=== PATIENT | female | born 1990 | race Caucasian/White ===

== ENCOUNTER 2024-01-12 09:51 | Outpatient (AMB) | payer OTHER, SELFPAY ==
--- NOTE | 2024-01-12 10:04 | A.OFFPC_ITS ---
Vital Signs 01/12/24 10:12 Height 5 ft 1 in Weight 199 lb BMI 37.6 BP 120/60 Blood Pressure Location Rt brachial Position Sitting Respiration 16 Pulse 92 Pulse Source Pulse Oximeter Temp 96.9 F Temp Source Tympanic Pulse Oximetry (%) 98 Oxygen Delivery Method Room Air Intake Visit Reasons: Est Care Intake Note: establish care Is last menstrual period known: Yes Last menstrual period: 01/16/24 Post menopausal: No Patient : No Allergies No Known Allergies Allergy (Verified 01/12/24 10:05) Medication List - Last Reconciled 01/12/24 by Vega Vargas MD albuterol sulfate 90 mcg/actuation inhalation budesonide-formoterol 160-4.5 mcg/actuation (Symbicort) inhalation budesonide-formoterol 80-4.5 mcg/actuation (Breyna) inhalation copper (ParaGard T 380A) intrauterine sodium fluoride-pot nitrate 1.1-5 % (PreviDent 5000 Enamel Protect) dental zafirlukast 20 mg PO BID Tobacco use date assessed: 01/12/24 Dental Screening Dental Screen Date: 01/12/24 Did you have a dental visit in the last 12 months?: Yes Did you have a dental problem in the last 6 months where you did not have access to dental care?: No Was dental information given to patient?: Patient has dentist HPI Est Care HPI Details New Patient? ?? Prior PCP:? [facility] Last office visit/CPE:? May for CPE Acute issue(s):? Est Care Asthma has fair control - worsened by seasonal allergies ?? PMHx:? Asthma. SurgHx:? Intestinal blockage as baby, FHx:? Mom: Hypothyroid. Dad: Unknown. mGM: Thyroid problems. mGF: DM, Blood Clots, skin CA. SocHx:? Nonsmoker, EtOH Socially 1-2 per month. MJ: daily. No other drugs HPI Comments History of Present Illness Details Documentation assistance for Vega Vargas MD, was provided by Vick Muñiz,? Bpo Specialist on 01/12/2024 at 10:39 AM EST. I, Dr. Vargas, have read, observed, and verified documentation. [facility] Social History (Updated 01/12/24 @ 10:07 by Ryne Fowler MA) Housing: House Patient Tobacco Use Status: Never used Tobacco e-Cigarette/Vaping Use: Never Used Second Hand Smoke Exposure: No Use of substances other than those prescribed or required for medical reasons: No Patient : No service: No Current occupational status: unemployed Current occupational exposures/hazards: No Cognitive needs: No Hearing needs: No Vision needs: Yes Female Reproductive History Menstrual Date of last menstrual period: 01/16/24 Questionnaire PHQ-9 Over the last 2 weeks, how often have you been bothered by any of the following problems? 1. Little interest or pleasure in doing things: not at all 2. Feeling down, depressed, or hopeless: not at all 3. Trouble falling or staying asleep, or sleeping too much: several days 4. Feeling tired or having little energy: not at all 5. Poor appetite or overeating: not at all 6. Feeling bad about yourself - or that you are a failure or have let yourself or your family down: not at all 7. Trouble concentrating on things, such as reading the newspaper or watching television: not at all 8. Moving or speaking so slowly that other people could have noticed. Or the opposite - being so fidgety or restless that you have been moving around a lot more than usual: not at all 9. Thoughts that you would be better off or of hurting yourself in some way: not at all Total score: 1 Depression Screening Interpretation: Negative Depression Screening Done: Yes 69622 - PHQ-9 Billing: Yes Source: Developed by Drs. Edvin Catherine, Melissa De La Cruz, Bimal Harris and colleagues, with an educational kizzy from [employer]. Thrive Questionnaire Date Thrive assessed: 01/12/24 I am a: Patient What is your living situation today?: I have a steady place to live Within the past 12 months, did the food you bought not last and you didn't have the money to get more?: Never true Within the past 12 months, did you worry whether your food would run out before you got money to buy more?: Never true Do you have trouble paying for medicines?: No Do you have trouble getting transportation to medical appointments?: No Do you have trouble paying your heating and electricity bill?: No Do you have trouble taking care of your child, family member or friend?: No Do you have trouble with day-to-day activities such as bathing, preparing meals, shopping, managing finances, etc.?: No Are you currently unemployed and looking for a job?: No Are you interested in more education?: No Currently or been in a relationship where the following occur: No concerns reported THRIVE Score: 0 AUDIT C Alcohol Use Questionnaire (AUDIT-C) 1. How often do you have a drink containing alcohol?: Monthly or less 2. How many drinks containing alcohol do you have on a typical day when you are drinking?: 1 or 2 3. How often do you have six or more drinks on one occasion?: Never Total Score: 1 MARYA-7 AMB Questionnaire MARYA-7 Date MARYA - 7 assessed: 01/12/24 Feeling nervous, anxious, or on edge: 0 = Not at all Not being able to stop or control worryin = Not at all Worrying too much about different things: 0 = Not at all Trouble relaxin = Not at all Being so restless that it is hard to sit still: 0 = Not at all Becoming easily annoyed or irritable: 0 = Not at all Feeling afraid as if something awful might happen: 0 = Not at all Total MARYA-7 score (0-4 normal; 5-9 mild; 10-14 moderate; 15-21 severe): 0 Source: Developed by Drs. Edvin Catherine, Melissa De La Cruz, Bimal Harris and colleagues, with an educational kizzy from [employer]. MARYA-7 Assessment Billing MARYA-7 Assessment Tool: MARYA-7 Assessment [id number] ACT Questionnaire In the past 4 weeks, how much of the time did your asthma keep you from getting as much done at work, school or at home?: A little of the time During the past 4 weeks, how often have you had shortness of breath?: Once a day During the past 4 weeks, how often did your asthma symptoms wake you up at night or earlier than usual in the morning?: Not at all During the past 4 weeks, how often have you had to use your rescue inhaler or nebulizer medication?: Once a week or less How would you rate your asthma control during the past 4 weeks?: Somewhat controlled ACT Interpretation: Positive Score: 18 Review of Systems Const Denies chills, Denies fatigue, Denies fever(s), Denies headache(s) and Denies weakness ENT Denies dizziness and Denies headache(s) Card Denies chest pain, Denies lightheadedness, Denies dyspnea and Denies other (Palpitations) Resp Denies cough, Denies dyspnea, Denies wheezing and Denies other ( shortness of breath) Musc Denies numbness and Denies tingling Neuro Denies dizziness, Denies headache(s), Denies numbness, Denies tingling, Denies paresthesias and Denies weakness Psych Denies anxiety and Denies depression Endo Denies fatigue Aller/Immun Denies wheezing Physical exam (Primary Care) Vital Signs: Last Vital Signs Temp 96.9 F 01/12/24 10:12 Pulse 92 01/12/24 10:12 Resp 16 01/12/24 10:12 BP 120/60 01/12/24 10:12 Pulse Ox 98 01/12/24 10:12 Oxygen Delivery Method Room Air 01/12/24 10:12 BMI result Body Mass Index 37.6 Tobacco/Smoking Status: Tobacco use Status Tobacco use date assessed 01/12/24 01/12/24 10:15 Patient Tobacco Use Status Never used Tobacco 01/12/24 10:15 e-Cigarette/Vaping Use Never Used 01/12/24 10:15 PHQ-9: PHQ-9 Score PHQ-9: Total score 1 01/12/24 10:30 Depression Screening Interpretation: Negative Thrive Assessment: Date of Thrive Assessment Date Thrive assessed 01/12/24 01/12/24 10:15 Currently or been in a relationship where the following occur: No concerns reported Const General: no acute distress and well developed Nutritional Appearance: well nourished Orientation/consciousness: patient oriented x3 [facility] Head: Yes normocephalic and Yes atraumatic Eyes General: appearance normal, both eyes and all related structures Pupils: Equal, round and reactive pupils present EOM: EOMs intact bilaterally Resp Effort & Inspection: normal respiratory effort Auscultation: clear to auscultation bilaterally Cardio Rate: regular rate Rhythm: regular rhythm Heart sounds: S1 normal heart sound present, S2 normal heart sound present, no gallops, no murmurs and no rubs Neuro General: patient oriented x3 and gait normal Cranial nerves: Yes Equal, round and reactive pupils present Psych Affect: normal affect Assessment and Plan Assessment & Plan (1) Asthma: Code(s): J45.909 - Unspecified asthma, uncomplicated Plan: 33-year-old?female?presents?as?new?patient?and?has?fairly?well?controlled?asthma Lungs?are?clear?today?and?she?is?breathing?easily. She?does?note?that?allergies?worsen?her?symptoms?however.??She?could?consider?us ing?a?nasal?steroid?along?with?her?current?medication?regimen?and?she?says?she?h as?Flonase?at?home?but?does?not?always?use?it. Patient?also?smokes?mJ?daily?and?I?advised?that?she?should?only?have?fresh?air?a nd?her?medications?in?her?lungs. Continue?current?medications?and?will?refill?these. (2) Seasonal allergies: Code(s): J30.2 - Other seasonal allergic rhinitis Plan: As?above (3) Laboratory exam ordered as part of routine general medical examination: Code(s): Z00.00 - Encounter for general adult medical examination without abnormal findings Plan: Check?labs Orders: Orders Comprehensive [place]. Panel Fast Today Z00.00 - Encounter for general adult medical examination without abnormal findings Lipid Panel Today Z00.00 - Encounter for general adult medical examination without abnormal findings UA and rflx microscopic Today Z00.00 - Encounter for general adult medical examination without abnormal findings HIV Ab/Ag Today Z11.3 - Encounter for screening for infections with a predominantly sexual mode of transmission Syphilis Screen Today Z11.3 - Encounter for screening for infections with a predominantly sexual mode of transmission Hepatitis B,C Profile Today Z11.3 - Encounter for screening for infections with a predominantly sexual mode of transmission Complete Blood Count Auto Diff Today Z00.00 - Encounter for general adult medical examination without abnormal findings Microalbumin, Random (w Creat) Today I10 - Essential (primary) hypertension TSH reflex Free T4 Today Z00.00 - Encounter for general adult medical examination without abnormal findings CT NG by PCR Today Z11.3 - Encounter for screening for infections with a predominantly sexual mode of transmission Coding Level of Care Code New Pt Level 3 (12972) Diagnoses Asthma J45.909 Seasonal allergies J30.2 Laboratory exam ordered as part of routine general medical examination Z00.00 Additional Codes MARYA-7 Assessment Billing - MARYA-7 Assessment Tool: MARYA-7 Assessment 28374 ([id number])
[2024-01-12 10:12] VITALS: BP 120/60; PULSE 92; RESP 16; TEMP 36.1; O2SAT 98; BMI 37.6
== END 2024-01-12 10:54 | disposition home or self-care (01) ==
PROVIDERS: Visit Provider Family Medicine
DX: J45.909 Unspecified asthma, uncomplicated (principal)
CPT/HCPCS: 99203

== ENCOUNTER 2024-08-02 09:28 | Outpatient (REF) | payer OTHER, SELFPAY ==
--- OUTSIDE RECORDS SUMMARY | 2024-08-02 09:57 | XMS_ITS | Encounter Summary ---
Author Organization [employer] Address [address] [place] [address] Care Team Providers Care Permanent Waver Name Role Phone Shannan Quiñones Primary Care Provider Clementina Osorio DO Primary Care Provider [phone] Encounter Details Date Type Department Care Team (Late st Contact Info) Description 05/21/[address] [facility] MEDICAL [address] [place] [address] Nneka Ruiz CMA Social History Tobacco Use Types Packs/Day Years Used Date Smoking Tobacco: Never Smokeless Tobacco: Never Alcohol Use Standard Drinks/Week Comments Not Currently 0 (1 standard drink = 0.6 oz pur e alcohol) Ocassionally Housing Stability Answer Date Recorded What is your housing situation today? I have nikki saunders 02/25/[address] you li ve. Do you have problems with any of the following? None of the above 02/25/2023 Food Insecurity Answer Date Recorded Within the past 12 months, y ou worried that your food would run out before you got money to buy more: Never True 02/25/2023 Within the past 12 months,th e food you bought just didn't last and you didn't have enough money to get more: Never True Transportation Answer Date Recorded In the past 12 months, has l ack of transportation kept you from medical appts, meetings, work or from getting things needed for daily living? No 02/25/2023 Utilities Answer Date Recorded In the past 12 months, has t he electric, gas, oil or water company threatened to shut off services in your home? No 02/25/2023 Depression Answer Date Recorded Patient Health Questionnaire-2 Score 0 08/27/2022 Education Answer Date Recorded What is the highest level of school you have completed or the highest degree you have received? Some college, no degree 08/27/2022 Comments Yes Sex and Gender Information Value Date Recorded Sex Assigned at Female 06/15/2022 12:14 PM EST Legal Sex Female 8:37 PM EDT Gender Identity Female 06/15/2022 12:14 PM EST Sexual Orientation Straight 06/15/2022 12 :14 PM EST Occupation Industry Job Start Date Job End Date [employer] Not on file Not on file Not on file documented as of this encounter Plan of Treatment Not on file documented as of this encounter Visit Diagnoses Not on filedocumented in this encounter Care Teams Permanent Waver Relationship Specialty Start Date End Date Shannan Quiñones PA PCP - General Family Medicine 05/19/23 09/14/23 Clementina Pederson DO [address] [place] [id number] PCP - General Family Medicine 09/15/23 documented as of this encounter
--- OUTSIDE RECORDS SUMMARY | 2024-08-02 09:57 | XMS_ITS | Clinical Summary ---
Author Organization [employer] Address [address] [facility] [address] [place] [address] Care Team Providers Care Automatic Lathe Operator Name Role Phone Clementina Pederson DO Primary Care Provider [phone] Allergies Active Allergy Reactions Criticality Noted Date Comments Cat Dander Other Low 04/15/2022 Other reaction(s): itchy eyes, runny nose Gramineae Pollens Other Low 04/15/2022 Other reaction(s): itchy eyes, runny nose Molds & Smuts Other Low 08/27/2022 Runny nose, itchy eyes Medications cetirizine (ZyrTEC) 10 MG tablet Take 10 mg by mouth in the morning. 2 Active Sodium Fluoride 5000 Enamel 1.1-5 % gel 2 Active copper (Paragard) IUD 3 Active budesonide-formot kyrie (Symbicort) 80-4.5 MCG/ACT inhalerIndication s:Mild persistent asthma without complication Inhale 2 puffs in the morning and at bedtime. Rinse mouth with water after use to reduce aftertaste and incidence of candidiasis. Do not swallow. 10.2 g 11 4 09/15/19 25 Active albuterol 108 (90 Base) MCG/ACT inhalerIndication s:Mild persistent asthma without complication Inhale 2 puffs every 4 (four) hours if needed for wheezing. 36 g 3 4 Active zafirlukast (Accolate) 20 MG tabletIndications :Mild persistent asthma without complication,Jones rgic rhinitis, unspecified seasonality, unspecified trigger Take 1 tablet (20 mg) by mouth 2 times daily. 180 tablet 3 4 Active Active Problems Problem Noted Date Diagnosed Date Routine general medical examination at [facility] 05/24/2023 Assessment & Plan (05/24/2023 10:21 AM EST): Mag was seen today to establish care with myself. She is doing well. She just had her 4th baby appx 6.5m ago. Doing well. Exclusively and just introduced foods, this is going ok for now. SAHM. Has 3 older children, all in school. Lives with . Diet is ok, mostly home cooked meals. Activity level is not where she would like it to be. No significant family hx; grandfather had skin cancer but also worked outside as a [employer] for years. Does not smoke/only occasional ETOH/no marijuana. Will do labwork at [facility] coming up in August. Gastroesophageal reflux disease 08/27/2022 Allergic rhinitis 04/15/2022 Assessment & Plan (05/24/2023 10:18 AM EST): Stable. Continues on Zyrtec as needed. 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 6, almost 7m. Doing well. Followed by Associate Publisher as well. No concerns today. Mild persistent asthma without complication 04/01 Assessment & Plan (05/24/2023 10:17 AM EST): Ongoing but stable. Asking for refills of Albuterol and Symbicort. Class 2 obesity 04/15/2022 Stress incontinence 04/15/2022 Resolved Problems Problem Noted Date Diagnosed Date Resolved Date Pyloric stenosis 09/15/2023 09/15/2023 Immunizations Name Administration Dates Next Due DTaP 01/18/1994, 4,05/18/1990,1989,01/07/1989 HPV 9-Valent 01/20/2007,09/19/2006 Hep B, Adolescent or Pediatric 09/01/2000,1999,02/11/2000 Hib (PRP-T) 02/03/1990 INFLUENZA INJECTABLE QUADRIV ALANT CCIIV4 MDCK Multi-dose vial 02/23/2019 Influenza, IIV3, injectable 03/23/2016,1 ,01/14/2014,2012 Influenza, Split (incl. nicole fied surface antigen) 02/19/2005,02/05/2004,02/22/2003,2001,01/30/2001,03/18/2000,02/13/1999 MMR 01/22/1999,02/01/1990 Polio, Unspecified 12/14/1993, 1,03/04/1989,1988 TD (adult), 2 Lf tetanus tox oid, preservative free, adsorbed 02/02/2011 Tdap 08/04/2022, 3,06/30/2014,2014 Family History Medical History Relation Name Comments healthy Daughter 1 healthy Daughter 2 healthy Daughter 3 No Known Problems Father Thyroid disease Mother Relation Name Status Comments Daughter 1 Alive Daughter 2 Alive Daughter 3 Alive Father Alive Mother Alive Social History Tobacco Use Types Packs/Day Years Used Date Smoking Tobacco: Never Passive Smoke Exposure: Never Smokeless Tobacco: Never Tobacco Cessation:Counseling Given: Not Answered Alcohol Use Standard Drinks/Week Comments Not Currently 0 (1 standard drink = 0.6 oz pur e alcohol) Ocassionally Alcohol Answer Date Recorded How often do you have a drink containing alcohol ? 0 09/15/2023 How many drinks containing a lcohol do you have on a typical day when you are drinking? 0 09/15/2023 How often do you have six or more drinks on one occasion? 0 09/15/2023 Housing Stability Answer Date Recorded What is your housing situation today? I have nikki saunders 09/15/[address] you li ve. Do you have problems with any of the following? None of the above 09/15/2023 Food Insecurity Answer Date Recorded Within the past 12 months, y ou worried that your food would run out before you got money to buy more: Never True 09/15/2023 Within the past 12 months,th e food you bought just didn't last and you didn't have enough money to get more: Never True Transportation Answer Date Recorded In the past 12 months, has l ack of transportation kept you from medical appts, meetings, work or from getting things needed for daily living? No 09/15/2023 Intimate Partner Violence Answer Date R ecorded Within the last year, have y ou been afraid of your partner or ex-partner? 2 09/15/2023 Within the last year, have y ou been humiliated or emotionally abused in other ways by your partner or ex-partner? 2 Within the last year, have y ou been kicked, hit, slapped, or otherwise physically hurt by your partner or ex-partner? 2 09/15/2023 Within the last year, have y ou been raped or forced to have any kind of sexual activity by your partner or ex-partner? 2 09/15/2023 Utilities Answer Date Recorded In the past 12 months, has t he [employer], gas, oil or water company threatened to shut off services in your home? No 09/15/2023 Depression Answer Date Recorded Patient Health Questionnaire-2 Score 0 09/15/2023 Education Answer Date Recorded What is the highest level of school you have completed or the highest degree you have received? Some college, no degree 08/27/2022 Comments Unknown Sex and Gender Information Value Date Recorded Sex Assigned at Female 06/15/2022 12:14 PM EST Legal Sex Female 8:37 PM EDT Gender Identity Female 06/15/2022 12:14 PM EST Sexual Orientation Straight 06/15/2022 12 :14 PM EST Occupation Industry Job Start Date Job End Date [employer] Not on file Not on file Not on file Last Filed Vital Signs Vital Sign Reading Time Taken Comments Blood Pressure 112/76 09/15/2023 11:13 AM EDT Pulse 90 09/15/2023 11:13 AM EDT Temperature 36.3 ??C (97.3 ??F) 09/15/2023 11:13 AM E DT Respiratory Rate - - Oxygen Saturation 95% 09/15/2023 11:13 AM EDT Inhaled Oxygen Concentration - - Weight 88.5 kg (195 lb) 09/15/2023 11:13 AM EDT Height 154.9 cm (5' 1 ) 09/15/2023 11:13 AM EDT Body Mass Index 36.84 09/15/2023 11:13 AM EDT Plan of Treatment Health Maintenance Due Date Last Done Comments HIV Screening 1988 Hepatitis C Screening 2006 HPV Vaccines (3 - 3-dose series) 04/14/2007 01/20/2007, 09/19/2006 Pneumococcal Vaccine: Pediatrics (0 to 5 Years) and At-Risk Patients (6 to 49) Years) (1 of 2 - PCV) 11/02/2007 HPV/Cotest 2018 COVID-19 Vaccine (1 - season) 2024 Influenza Vaccine (#1) 2024 9, 03/23/2016, 02/25/2015, Additional history exists Alcohol/Substance Use Screening 09/14/2024 09/15/2023 Depression Screening 09/14/2024 09/15/2023, 09/15/19 24 Family Planning (PISQ) 09/14/2024 09/15/2023 SDOH Screening 09/14/2024 09/15/2023 Tobacco Screening 09/14/2024 09/15/2023 Cervical Cancer Screening 01/18/2025 Pap Smear 01/18/2025 01/18/2022 DTaP/Tdap/Td Vaccines (9 - Td or Tdap) 08/04/2032 08/04/2022, 08/03/2022, 06/30/2014, Additional history exists Zoster Vaccines (1 of 2) 2038 RSV Patients and Patients Aged 60 years or older (1 - 1-dose 75+ series) 11/02/2063 HIB Vaccines Completed 02/03/1990 IPV Vaccines Completed 12/14/1993, 05/02, 03/04/1989, Additional history exists Hepatitis B Vaccines Completed 09/01/2000, 04/13/2000, 02/11/2000 Hepatitis A Vaccines Aged Out No long er eligible based on patient's age to complete this topic Meningococcal Vaccine Aged Out No rosalie karley eligible based on patient's age to complete this topic RSV under 20 months Aged Out No longe r eligible based on patient's age to complete this topic Rotavirus Vaccines Aged Out No longer eligible based on patient's age to complete this topic Procedures Procedure Name Priority Date/Time Associated Diagnosis Comments HM PAP/HPV Routine 01/18/2022 from Last 3 Months or Most Recently Relevant to Health Maintenance Results * Pap Smear (01/18/2022) Pap smear positive HPV Historical Provider MD HEALTH MAINTENANCE Final Result from Last 3 Months or Most Recently Relevant to Health Maintenance Insurance [employer] Care Teams Automatic Lathe Operator Relationship Specialty Start Date End Date Clementina Pederson DO [address] [facility] [place] [address] PCP - General Family Medicine 09/15/23
[2024-08-02 11:49] LABS: MANUAL DIFF FLAG NO
[2024-08-02 11:58] LABS: Basophils Absolute Auto 0.1 X10*3/uL (0.0-0.2); Basophils Percent Auto 0.7 % (0-2); Eosinophils Absolute Auto 0.3 X10*3/uL (0.0-0.4); Eosinophils Percent Auto 3.2 % (0-4); Hematocrit 42.5 % (37.0-47.0); Hemoglobin 13.9 g/dl (12.0-16.0); Imm Gran Abs Auto 0.04 X10*3/uL (0.00-0.03); Imm Gran Pct Auto 0.5 % (0.0-0.4); Lymphocytes Absolute Auto 2.2 X10*3/uL (1.2-4.9); Lymphocytes Percent Auto 26.1 % (20-40); Mean Corpuscular HGB Conc 32.7 g/dl (31.0-35.0); Mean Corpuscular Volume 88.5 fL (80.0-98.0); Mean Platelet Volume 11.6 fL (9.4-12.3); Monocytes Absolute Auto 0.5 X10*3/uL (0.1-1.2); Monocytes Percent Auto 6.4 % (2-11); Neutrophils Absolute Auto 5.4 x10*3/uL (2.0-8.3); Neutrophils Percent Auto 63.1 % (45-73); Platelet Count 242 X10*3/uL (160-400); Red Cell Distribution Width 13.4 % (11.0-16.0); White Blood Count 8.5 X10*3/uL (4.8-10.8)
[2024-08-02 12:32] LABS: Syphilis Screen Nonreactive (Nonreactive)
[2024-08-02 12:37] LABS: Alanine Aminotransferase 13 U/L (0-31); Albumin Level 3.8 g/dL (3.5-5.0); Alkaline Phosphatase 68 U/L (39-117); Anion Gap 9 (12-20); Aspartate Amino Transferase 21 U/L (5-31); Bilirubin Total 0.3 mg/dL (0.0-1.0); Blood Urea Nitrogen 7 mg/dL (9-16); Calcium 8.9 mg/dL (8.4-10.2); Carbon Dioxide 25 mmol/L (22-29); Chloride 109 mmol/L (96-108); Cholesterol 147 mg/dL (<200); Estimated Glomerular Filt Rate > 60; Glucose Fasting 93 mg/dL (60-99); HBS Num1 1.64 mIU/mL (0-7.99); HBc Num1 0.27 S/CO (0.00-0.79); HDL Cholesterol 35 mg/dL (>40); HIV AB/AG Nonreactive (Nonreactive); HIV Num 1 0.18 S/CO (0.00-0.99); Hepatitis B Core Antibody Nonreactive (Nonreactive); Hepatitis B Surface Antigen Negative (Negative); LDL Cholesterol Calculated 86 mg/dL (<100); Potassium 3.6 mmol/L (3.3-5.1); Sodium 139 mmol/L (135-145); TSH reflex Free T4 1.58 uIU/mL (0.32-4.0); Total Protein 6.7 g/dL (6.5-8.0); Triglycerides 134 mg/dL (<150); ~Hepatitis B Surface Antibody NONREACTIVE (Nonreactive); ~Hepatitis C Antibody Reactive (Nonreactive)
== END 2024-08-02 09:29 | disposition home or self-care (01) ==
LOC: HO.WFDLDS 09:28
PROVIDERS: Visit Provider Family Medicine
DX: Z00.00 Encounter for general adult medical examination without abnormal findings (principal); Z11.3 Encounter for screening for infections with a predominantly sexual mode of transmission
CPT/HCPCS: 36415; 80053; 80061; 84443; 85025; 86704; 86706; 86780; 86803; 87340; 87389

== ENCOUNTER 2024-08-17 08:38 | Outpatient (REF) | payer OTHER, SELFPAY ==
--- OUTSIDE RECORDS SUMMARY | 2024-08-17 09:01 | XMS_ITS | Clinical Summary ---
Author Organization [employer] Address [address] [facility] [address] [place] [address] Care Team Providers Care Linker Up Name Role Phone Clementina Pederson DO Primary Care Provider [phone] Allergies Active Allergy Reactions Criticality Noted Date [...] Diagnosed Date Routine general medical examination at [facility] 05/24/2023 Assessment & Plan (05/24/2023 [...] cancer but also worked outside as a [employer] for years. Does not smoke/only occasional ETOH/no marijuana. Will do labwork at [facility] coming up in August. Gastroesophageal reflux disease 08/27/2022 Allergic rhinitis 04/15/2022 Assessment & Plan (05/24/2023 10:18 AM EST): Stable. Continues on Zyrtec as needed. 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 6, almost 7m. Doing well. Followed by Straight Tooth Gear Generator Operator as well. No concerns today. Mild persistent [...] the past 12 months, has t he [employer], gas, oil or water company threatened to [...] Industry Job Start Date Job End Date [id number] Not on file Not on file Not [...] to Health Maintenance Insurance [employer] Care Teams Linker Up Relationship Specialty Start Date End Date Clementina Pederson DO [address] [facility] [place] [address] PCP - General Family Medicine 09/15/23
--- OUTSIDE RECORDS SUMMARY | 2024-08-17 09:01 | XMS_ITS | Encounter Summary ---
Author Organization [employer] Address [address] [place] [address] Care Team Providers Care Bowling Alley Attendant Name Role Phone Shannan Quiñones Primary Care Provider Clementina Osorio DO Primary Care Provider [phone] Encounter Details Date Type Department Care Team (Late st Contact Info) Description 05/21/2023 Orders Only [facility] MEDICAL [address] [place] [address] Nneka Ruiz CMA Social History Tobacco Use [...] Industry Job Start Date Job End Date [employer] Not on file Not on file Not on file documented as of this encounter Plan of Treatment Not on file documented as of this encounter Visit Diagnoses Not on filedocumented in this encounter Care Teams Bowling Alley Attendant Relationship Specialty Start Date End Date Shannan Quiñones PA PCP - General Family Medicine 05/19/23 09/14/23 Clementina Pederson DO [address] [place] [id number] PCP - General Family Medicine 09/15/23 documented as of this encounter
[2024-08-17 11:42] LABS: Anion Gap 9 (12-20); Blood Urea Nitrogen 9 mg/dL (9-16); Calcium 9.5 mg/dL (8.4-10.2); Carbon Dioxide 26 mmol/L (22-29); Chloride 107 mmol/L (96-108); Estimated Glomerular Filt Rate > 60; Glucose Random 98 mg/dL (60-115); Potassium 3.8 mmol/L (3.3-5.1); Sodium 138 mmol/L (135-145)
[2024-08-18 08:26] LABS: ~HepC Num1 4.13 S/CO (0.00-0.79); ~Hepatitis C Antibody Reactive (Nonreactive)
[2024-08-20 15:53] LABS: HCV RNA PCR Qn <1.18 NOT DETECTED Log IU/mL (NOT DETECTED); HCV RNA PCR Qn <15 NOT DETECTED IU/mL (NOT DETECTED)
== END 2024-08-17 08:39 | disposition home or self-care (01) ==
LOC: HO.WFDLDS 08:38
PROVIDERS: Visit Provider Family Medicine
DX: Z00.00 Encounter for general adult medical examination without abnormal findings (principal); R76.8 Other specified abnormal immunological findings in serum
CPT/HCPCS: 36415; 80048; 86803; 87522

== ENCOUNTER 2024-08-28 08:56 | Outpatient (AMB) | payer OTHER, SELFPAY ==
--- NOTE | 2024-08-28 09:01 | MHC.PC.OV ---
Vital Signs 08/28/24 09:05 Height 5 ft 1 in Weight 201 lb 4 oz BMI 38.0 BP 120/80 Blood Pressure Location Rt brachial Position Sitting Respiration 14 Pulse 96 Pulse Source Palpation Temp 97.7 F Temp Source Oral Pulse Oximetry (%) 98 Oxygen Delivery Method Room Air Intake Visit Reasons: extended exam with f/u labs & health maintenance Intake Note: patient is scheduled for extended exam Cost Controller Required: No Is last menstrual period known: Yes Last menstrual period: 08/16/24 Post menopausal: No Patient : No Allergies No Known Allergies Allergy (Verified 08/28/24 09:02) Tobacco use date assessed: 08/28/24 Dental Screening Dental Screen Date: 08/28/24 Did you have a dental visit in the last 12 months?: Yes Did you have a dental problem in the last 6 months where you did not have access to dental care?: No Was dental information given to patient?: No HPI extended exam with f/u labs & health maintenance HPI Details 33 y/o female presents for an extended exam with f/u labs and health maintenance. Labs drawn 08/02/24. Reviewed labs with pt. Triglycerides 134. TC 147. LDL 86. HDL low at 35. TSH 1.58. Exposure to hepatitis C. Complaints of seasonal allergies, asthma. She has her albuterol and has been trying Guerita for her allergies. HPI Comments History of Present Illness Details Documentation assistance for Vega Vargas MD, was provided by Vick Muñiz,? Financial Recruiter on 08/28/2024 at 9:46 AM EST. I, Dr. Vargas, have read, observed, and verified documentation. ?? [facility] Social History Housing: House Patient Tobacco Use Status: Never used Tobacco e-Cigarette/Vaping Use: Never Used Second Hand Smoke Exposure: No service: No Current occupational status: unemployed Current occupational exposures/hazards: No Cognitive needs: No Hearing needs: No Vision needs: Yes Female Reproductive History Menstrual Date of last menstrual period: 08/16/24 Questionnaire PHQ-9 Over the last 2 weeks, how often have you been bothered by any of the following problems? 1. Little interest or pleasure in doing things: not at all 2. Feeling down, depressed, or hopeless: not at all 3. Trouble falling or staying asleep, or sleeping too much: not at all 4. Feeling tired or having little energy: not at all 5. Poor appetite or overeating: not at all 6. Feeling bad about yourself - or that you are a failure or have let yourself or your family down: not at all 7. Trouble concentrating on things, such as reading the newspaper or watching television: not at all 8. Moving or speaking so slowly that other people could have noticed. Or the opposite - being so fidgety or restless that you have been moving around a lot more than usual: not at all 9. Thoughts that you would be better off or of hurting yourself in some way: not at all Total score: 0 Depression Screening Interpretation: Negative Depression Screening Done: Yes 26535 - PHQ-9 Billing: Yes Source: Developed by Drs. Edvin Catherine, Melissa De La Cruz, Bimal Harris and colleagues, with an educational kizzy from [employer]. Thrive Questionnaire Date Thrive assessed: 08/28/24 I am a: Patient What is your living situation today?: I have a steady place to live Within the past 12 months, did the food you bought not last and you didn't have the money to get more?: Never true Within the past 12 months, did you worry whether your food would run out before you got money to buy more?: Never true Do you have trouble paying for medicines?: No Do you have trouble getting transportation to medical appointments?: No Do you have trouble paying your heating and electricity bill?: No Do you have trouble taking care of your child, family member or friend?: No Do you have trouble with day-to-day activities such as bathing, preparing meals, shopping, managing finances, etc.?: No Are you currently unemployed and looking for a job?: No Are you interested in more education?: No Please select the resources that you would like help with: None Currently or been in a relationship where the following occur: No concerns reported THRIVE Score: 0 AUDIT C Alcohol Use Questionnaire (AUDIT-C) 1. How often do you have a drink containing alcohol?: 2-4 times a month 2. How many drinks containing alcohol do you have on a typical day when you are drinking?: 1 or 2 3. How often do you have six or more drinks on one occasion?: Never Total Score: 2 Score Reviewed/Action Taken: Yes MARYA-7 AMB Questionnaire MARYA-7 Date MARYA - 7 assessed: 08/28/24 Feeling nervous, anxious, or on edge: 0 = Not at all Not being able to stop or control worryin = Not at all Worrying too much about different things: 0 = Not at all Trouble relaxin = Not at all Being so restless that it is hard to sit still: 0 = Not at all Becoming easily annoyed or irritable: 0 = Not at all Feeling afraid as if something awful might happen: 0 = Not at all Total MARYA-7 score (0-4 normal; 5-9 mild; 10-14 moderate; 15-21 severe): 0 Source: Developed by Drs. Edvin Catherine, Melissa De La Cruz, Bimal Harris and colleagues, with an educational kizzy from [employer]. MARYA-7 Assessment Billing MARYA-7 Assessment Tool: MARYA-7 Assessment 46842 Review of Systems Const Denies chills, Denies fatigue, Denies fever(s), Denies headache(s) and Denies weakness Eyes Denies change in vision ENT Denies dizziness, Denies headache(s), Denies hearing loss, Denies nasal congestion, Denies sinus pain, Denies sinus pressure and Denies sore throat Card Denies chest pain, Denies lightheadedness, Denies dyspnea and Denies other (palpitations) Resp Denies cough, Denies dyspnea and Denies wheezing GI Denies abdominal pain, Denies melena, Denies hematochezia, Denies change in bowel habits, Denies dyspepsia and Denies nausea Denies hematuria and Denies dysuria Musc Denies abnormal gait, Denies myalgias, Denies arthralgias, Denies numbness and Denies tingling Skin/Breast Denies rash, Denies unusual bruising and Denies wounds Neuro Denies abnormal gait, Denies dizziness, Denies headache(s), Denies memory loss, Denies numbness, Denies Sensory deficit (Neuro), Denies tingling and Denies weakness Psych Denies anxiety, Denies depression and Denies memory loss Endo Denies cold intolerance, Denies fatigue, Denies heat intolerance, Denies polydipsia and Denies polyuria Pop/Lymph Denies easy bleeding and Denies easy bruising Aller/Immun Denies wheezing Physical exam (Primary Care) Vital Signs: Last Vital Signs Temp 97.7 F 08/28/24 09:05 Pulse 96 08/28/24 09:05 Resp 14 08/28/24 09:05 BP 120/80 08/28/24 09:05 Pulse Ox 98 08/28/24 09:05 Oxygen Delivery Method Room Air 08/28/24 09:05 BMI result Body Mass Index 38.0 Tobacco/Smoking Status: Tobacco use Status Tobacco use date assessed 08/28/24 08/28/24 09:05 Patient Tobacco Use Status Never used Tobacco 08/28/24 09:05 e-Cigarette/Vaping Use Never Used 08/28/24 09:05 PHQ-9: PHQ-9 Score PHQ-9: Total score 0 08/28/24 09:41 Depression Screening Interpretation: Negative Thrive Assessment: Date of Thrive Assessment Date Thrive assessed 08/28/24 08/28/24 09:05 Currently or been in a relationship where the following occur: No concerns reported Const General: no acute distress, well developed, alert and awake Nutritional Appearance: well nourished Orientation/consciousness: patient oriented x3 HENMT Head: Yes normocephalic and Yes atraumatic Ears: hearing grossly normal bilaterally and TM's normal bilaterally General nose exam: Normal external nose present and Normal nares present Mouth: Normal oral and palatal mucosa present and moist mucous membranes Teeth and gingiva: dentition normal Throat: Yes posterior oropharynx normal Eyes General: appearance normal, both eyes and all related structures Pupils: Equal, round and reactive pupils present and Pupil accommodation reflex normal EOM: EOMs intact bilaterally Neck Neck: Yes normal visual inspection, Yes no lymphadenopathy and Yes trachea midline Thyroid: Thyroid normal Carotids: no bruits Lymphatic: no lymphadenopathy noted Chest Chest palpation & inspection: normal inspection of the chest Resp Effort & Inspection: normal respiratory effort Auscultation: clear to auscultation bilaterally Cardio Rate: regular rate Rhythm: regular rhythm Heart sounds: S1 normal heart sound present, S2 normal heart sound present, no gallops, no murmurs and no rubs Bruits: no abdominal aortic bruits and no carotid bruits GI Palpation (GI): No Abdominal aortic bruit present, Soft to palpation, nontender, No hepatosplenomegaly present and No Rebound tenderness present Auscultation: normal bowel sounds General: Yes no CVA tenderness Back/Spine/Pelvis Back: no CVA tenderness Cervical Spine: cervical ROM normal and No Cervical spine tenderness Thoracic/Lumbar Spine: thoraco-lumbar ROM normal, No pain with thoraco-lumbar ROM, No thoracic spinal tenderness and No lumbar spinal tenderness Skin Lesions: no lesions Rashes: no rashes Trauma: no lacerations or abrasions Wounds: no wounds Nails: normal Neuro General: patient oriented x3 Cranial nerves: Yes Equal, round and reactive pupils present Cognition (Neuro): normal cognition Gait exam (Neuro): Normal gait present Motor exam (neuro): 5/5 motor strength present throughout Sensory Exam: No Sensory deficit (Neuro) Deep tendon reflexes (DTR's): Right patellar reflex intensity grade: 2+ and Left patellar reflex intensity grade: 2+ Extrem General: Yes normal to inspection and No edema Psych Appearance: grossly normal Affect: normal affect Attitude: cooperative Thought process: Normal thought process present Coding Level of Care Code Est Pt Level 4 (51126) Diagnoses Seasonal allergies J30.2 Exposure to hepatitis C Z20.5 Asthma J45.909 Screening for cervical cancer Z12.4 Adult general medical exam Z00.00 Additional Codes MARYA-7 Assessment Billing - MARYA-7 Assessment Tool: MARYA-7 Assessment 19228 ([id number]) PHQ-9 - 92419 - PHQ-9 Billing: Yes ([id number]) Assessment & Plan Assessment & Plan (1) Seasonal allergies: Code(s): J30.2 - Other seasonal allergic rhinitis Category: Medical Plan: Continue?using?Guerita?as?recommended (2) Exposure to hepatitis C: Code(s): Z20.5 - Contact with and (suspected) exposure to viral hepatitis Category: Medical Plan: Hep?C?antibody?positive?but?hepatitis?C?virus?undetectable Appears?to?have?had?exposure?and?has?cleared?this. Will?recheck?with?next?blood?draw (3) Asthma: Code(s): J45.909 - Unspecified asthma, uncomplicated Category: Medical Plan: Lungs?are?clear?to?auscultation?bilaterally Patient?is?breathing?easily Continue?inhaled?medications?as?prescribed Use?Guerita Call?or?return?to?office?if?well?controlled. (4) Screening for cervical cancer: Code(s): Z12.4 - Encounter for screening for malignant neoplasm of cervix Category: Medical Plan: Patient?notes?some?abnormal?Pap?smears Follow-up?with?auricular detoxification specialist?as?recommended (5) Adult general medical exam: Code(s): Z00.00 - Encounter for general adult medical examination without abnormal findings Category: Medical Plan: 33-year-old?female?presents?for?extended?exam Encouraged?healthy?diet?with?active?lifestyle?and?plenty?of?exercise Orders: Orders Hepatitis C Viral Load 4 Months Z20.5 - Contact with and (suspected) exposure to viral hepatitis Hepatitis B,C Profile 4 Months Z11.3 - Encounter for screening for infections with a predominantly sexual mode of transmission, Z20.5 - Contact with and (suspected) exposure to viral hepatitis Comprehensive Met. Panel Today Z20.5 - Contact with and (suspected) exposure to viral hepatitis
[2024-08-28 09:05] VITALS: BP 120/80; PULSE 96; RESP 14; TEMP 36.5; O2SAT 98; BMI 38.0
--- OUTSIDE RECORDS SUMMARY | 2024-08-28 09:30 | XMS_ITS | Encounter Summary ---
Author Organization [employer] Address [address] [place] [address] Care Team Providers Care Herbarium Curator Name Role Phone Shannan Quiñones Primary Care Provider Clementina Osorio DO Primary Care Provider [phone] Encounter Details Date Type Department Care Team (Late st Contact Info) Description 05/21/2023 Orders Only [facility] MEDICAL [address] [place] [address] Nneka Ruiz CMA Social History Tobacco Use [...] Industry Job Start Date Job End Date [employer] Not on file Not on file Not on file documented as of this encounter Plan of Treatment Not on file documented as of this encounter Visit Diagnoses Not on filedocumented in this encounter Care Teams Herbarium Curator Relationship Specialty Start Date End Date Shannan Quiñones PA PCP - General Family Medicine 05/19/23 09/14/23 Clementina Pederson DO [address] [place] [id number] PCP - General Family Medicine 09/15/23 documented as of this encounter
--- OUTSIDE RECORDS SUMMARY | 2024-08-28 09:30 | XMS_ITS | Clinical Summary ---
Author Organization [employer] Address [address] [facility] [address]t [place] [address] Care Team Providers Care Commercial Loan Administrator Name Role Phone Clementina Pederson DO Primary Care Provider [phone] Allergies Active Allergy Reactions Criticality Noted Date [...] Diagnosed Date Routine general medical examination at [facility] 05/24/2023 Assessment & Plan (05/24/2023 10:21 AM [...] cancer but also worked outside as a [employer] for years. Does not smoke/only occasional ETOH/no marijuana. Will do labwork at [facility] [place] [place] coming up in August. Gastroesophageal reflux disease 08/27/2022 Allergic rhinitis 04/15/2022 Assessment & Plan (05/24/2023 10:18 AM EST): Stable. Continues on Zyrtec as needed. 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 6, almost 7m. Doing well. Followed by Railway Signal Technician as well. No concerns today. Mild persistent [...] the past 12 months, has t he [employer], gas, oil or water company threatened to [...] Industry Job Start Date Job End Date [employer] Not on file Not on file Not [...] to Health Maintenance Insurance [employer] Care Teams Commercial Loan Administrator Relationship Specialty Start Date End Date Clementina Pederson DO [address] [facility] [place] [address] PCP - General Family Medicine 09/15/23
== END 2024-08-28 09:55 | disposition home or self-care (01) ==
LOC: HO.HMCFM 08:57
PROVIDERS: PCP Family Medicine; Visit Provider Family Medicine
DX: J30.2 Other seasonal allergic rhinitis (principal); Z20.5 Contact with and (suspected) exposure to viral hepatitis; J45.909 Unspecified asthma, uncomplicated; Z12.4 Encounter for screening for malignant neoplasm of cervix; Z00.00 Encounter for general adult medical examination without abnormal findings

== ENCOUNTER → 2024-08-28 08:56 | Outpatient (BNVA) | payer OTHER, SELFPAY | PROVIDERS: Visit Provider Family Medicine | DX: Z00.00 Encounter for general adult medical examination without abnormal findings (principal); J45.909 Unspecified asthma, uncomplicated; Z20.5 Contact with and (suspected) exposure to viral hepatitis | CPT/HCPCS: 96127 ==

== ENCOUNTER 2025-02-21 13:47 | Outpatient (REF) | payer OTHER, SELFPAY ==
--- OUTSIDE RECORDS SUMMARY | 2025-02-21 17:44 | XMS_ITS | Encounter Summary ---
Author Organization [email or web address] Address [address] [facility] [address] [place] [address] Care Team Providers Care Grape Pruner Name Role Phone Shannan Quiñones Primary Care Provider Clementina Osorio DO Primary Care Provider [phone] Encounter Details Date Type Department Care Team (Late st Contact Info) Description 05/21/2023 Orders Only [facility] MED[facility] [address] [place] [address] Nneka Ruiz CMA Social History Tobacco Use [...] Industry Job Start Date Job End Date [employer] Not on file Not on file Not on file documented as of this encounter Plan of Treatment Not on file documented as of this encounter Visit Diagnoses Not on filedocumented in this encounter Care Teams Grape Pruner Relationship Specialty Start Date End Date Shannan Quiñones PA PCP - General Family Medicine 05/19/23 09/14/23 Clementina Pederson DO [address] [place] [id number] PCP - General Family Medicine 09/15/23 documented as of this encounter
--- OUTSIDE RECORDS SUMMARY | 2025-02-21 17:44 | XMS_ITS | Clinical Summary ---
Author Organization [employer] Address [address] [facility] [address] [place] [address] Care Team Providers Care Screen Printing Equipment Setter Name Role Phone Clementina Pederson DO Primary Care Provider [phone] Allergies Active Allergy Reactions Criticality Noted Date [...] Do not swallow. 10.2 g 11 4 Active albuterol 108 (90 Base) MCG/ACT inhalerIndication [...] Diagnosed Date Routine general medical examination at [facility] facility 05/24/2023 Assessment & Plan (05/24/2023 10:21 AM [...] cancer but also worked outside as a [employer] for years. Does not smoke/only occasional ETOH/no marijuana. Will do labwork at [facility] coming up in August. Gastroesophageal reflux disease 08/27/2022 Allergic rhinitis 04/15/2022 Assessment & Plan (05/24/2023 10:18 AM EST): Stable. Continues on Zyrtec as needed. 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 6, almost 7m. Doing well. Followed by Supervisor General as well. No concerns today. Mild persistent asthma without complication 04/01 Assessment & Plan (05/24/2023 10:17 AM EST): Ongoing but stable. Asking for refills of Albuterol and Symbicort. Class 2 obesity 04/15/2022 Stress incontinence 04/15/2022 Resolved Problems Problem Noted Date Diagnosed Date Resolved Date Pyloric stenosis 09/15/2023 09/15/2023 Immunizations Immunization Administration Dates Next Due DTaP 01/18/1994, 4,05/18/1990,1989,01/07/1989 [...] the past 12 months, has t he [employer], gas, oil or water company threatened to [...] Industry Job Start Date Job End Date [employer] Not on file Not on file Not on file Last Filed Vital Signs Vital Sign Reading Time Taken Comments Blood Pressure 112/76 09/15/2023 11:13 AM EDT Pulse 90 09/15/2023 11:13 AM EDT Temperature 36.3 C (97.3 F) 09/15/2023 11:13 AM EDT Respiratory Rate - - Oxygen Saturation 95% 09/15/2023 11:13 AM EDT Inhaled Oxygen Concentration - - Weight 88.5 kg (195 lb) 09/15/2023 11:13 AM EDT Height 154.9 cm (5' 1 ) 09/15/2023 11:13 AM EDT Body Mass Index 36.84 09/15/2023 11:13 AM EDT Plan of Treatment Health Maintenance Due Date Last Done Comments HIV Screening 1988 Disability Screening 1988 Alcohol/Substance Use Screening 2000 Family Planning (PISQ) 11/02/2003 Hepatitis C Screening 2006 HPV Vaccines (3 - 3-dose series) 04/14/2007 01/20/2007, 09/19/2006 Pneumococcal Vaccine: Pediatrics (0 to 5 Years) and At-Risk Patients (6 to 49) Years (1 of 2 - PCV) 11/02/2007 HPV/Cotest 2018 Depression Screening 09/14/2024 09/15/2023, 09/15/19 24 SDOH Screening 09/14/2024 09/15/2023 Tobacco Screening 09/14/2024 09/15/2023 COVID-19 Vaccine ( season) 2024 Influenza Vaccine (#1) 2024 9, 03/23/2016, 02/25/2015, Additional history exists Cervical Cancer Screening 01/18/2025 Pap Smear 01/18/2025 [...] patient's age to complete this topic Meningococcal B Vaccine Aged Out No l onger eligible based on patient's age to complete [...] to Health Maintenance Insurance [employer] Care Teams Screen Printing Equipment Setter Relationship Specialty Start Date End Date Clementina Pederson DO [address] [place] [address] [place] PCP - General Family Medicine 09/15/23
[2025-02-21 18:18] LABS: Alanine Aminotransferase 20 U/L (0-31); Albumin Level 4.2 g/dL (3.5-5.0); Alkaline Phosphatase 66 U/L (39-117); Anion Gap 11 (12-20); Aspartate Amino Transferase 32 U/L (5-31); Blood Urea Nitrogen 13 mg/dL (9-16); Calcium 8.9 mg/dL (8.4-10.2); Carbon Dioxide 26 mmol/L (22-29); Chloride 107 mmol/L (96-108); Estimated Glomerular Filt Rate > 60; Potassium 3.9 mmol/L (3.3-5.1); Sodium 140 mmol/L (135-145); Total Protein 7.2 g/dL (6.5-8.0)
[2025-02-22 04:24] LABS: HBc Num1 0.11 S/CO (0.00-0.79); HBsAGNum1 0.35 S/CO (0.00-0.99); Hepatitis B Surface Antigen Negative (Negative)
[2025-02-22 04:29] LABS: HBS Num1 2.35 mIU/mL (0-7.99); ~HepC Num1 1.32 S/CO (0.00-0.79); ~Hepatitis B Surface Antibody NONREACTIVE (Nonreactive); ~Hepatitis C Antibody Reactive (Nonreactive)
[2025-02-23 15:34] LABS: HCV RNA PCR Qn <1.18 NOT DETECTED Log IU/mL (NOT DETECTED); HCV RNA PCR Qn <15 NOT DETECTED IU/mL (NOT DETECTED)
== END 2025-02-21 13:48 | disposition home or self-care (01) ==
LOC: HO.WFDLDS 13:47
PROVIDERS: Visit Provider Family Medicine
DX: Z11.3 Encounter for screening for infections with a predominantly sexual mode of transmission (principal); Z20.5 Contact with and (suspected) exposure to viral hepatitis
CPT/HCPCS: 36415; 80053; 86704; 86706; 86803; 87340; 87522

== ENCOUNTER 2025-02-28 09:20 | Outpatient (REF) | payer OTHER, SELFPAY ==
[2025-02-28 14:26] LABS: Appearance Urine Turbid; Glucose Urine UA Negative (Negative); PH 6.0 (5.0-9.0); Specific Gravity - Urine 1.025 (1.005-1.025); UMIC TRIGGER UA YES
[2025-02-28 15:08] LABS: Microalbum/Creatinine Ratio Ur 7.8 ug/mg cr (<30)
== END 2025-02-28 09:21 | disposition home or self-care (01) ==
LOC: HO.WFDLDS 09:20
PROVIDERS: PCP Family Medicine; Visit Provider Family Medicine
DX: I10 Essential (primary) hypertension (principal)
CPT/HCPCS: 81001; 82043; 82570

== ENCOUNTER 2025-02-28 09:20 | Outpatient (AMB) | payer OTHER, SELFPAY ==
--- NOTE | 2025-02-28 09:23 | MHC.PC.OV ---
Vital Signs 02/28/25 09:28 Height 5 ft 1 in Weight 206 lb 4 oz BMI 39.0 BP 128/54 L Blood Pressure Location Rt brachial Position Sitting Respiration 16 Pulse 74 Pulse Source Pulse Oximeter Temp 97.6 F Temp Source Oral Pulse Oximetry (%) 96 Oxygen Delivery Method Room Air Intake Visit Reasons: f/u hep C exposure Intake Note: patient here for follow up on hep c exposure Marine Mechanic Required: No Is last menstrual period known: Yes Last menstrual period: 02/18/25 Post menopausal: No Patient : No Allergies No Known Allergies Allergy (Verified 02/28/25 09:28) Tobacco use date assessed: 02/28/25 Dental Screening Dental Screen Date: 02/28/25 Did you have a dental visit in the last 12 months?: Yes Did you have a dental problem in the last 6 months where you did not have access to dental care?: No Was dental information given to patient?: Patient has dentist HPI f/u hep C exposure HPI Details 34 y/o female presents to f/u hep C exposure. Positive antibody to hep C. Viral load remains non detectable. HPI Comments History of Present Illness Details Documentation assistance for Vega Vargas MD, was provided by Vick Muñiz,? Circuit Court Clerk on 02/28/2025 at 10:01 AM EST. I, Dr. Vargas, have read, observed, and verified documentation. ?? [facility] Social History Housing: House Patient Tobacco Use Status: Never used Tobacco e-Cigarette/Vaping Use: Never Used Second Hand Smoke Exposure: No Patient : No service: No Current occupational status: unemployed Current occupational exposures/hazards: No Cognitive needs: No Hearing needs: No Vision needs: Yes Female Reproductive History Menstrual Date of last menstrual period: 02/18/25 Questionnaire Thrive Questionnaire Date Thrive assessed: 08/27/24 I am a: Patient What is your living situation today?: I have a steady place to live Within the past 12 months, did the food you bought not last and you didn't have the money to get more?: Never true Within the past 12 months, did you worry whether your food would run out before you got money to buy more?: Never true Do you have trouble paying for medicines?: No Do you have trouble getting transportation to medical appointments?: No Do you have trouble paying your heating and electricity bill?: No Do you have trouble taking care of your child, family member or friend?: No Do you have trouble with day-to-day activities such as bathing, preparing meals, shopping, managing finances, etc.?: No Are you currently unemployed and looking for a job?: No Are you interested in more education?: No Please select the resources that you would like help with: None Currently or been in a relationship where the following occur: No concerns reported THRIVE Score: 0 MARYA-7 AMB Questionnaire MARYA-7 Date MARYA - 7 assessed: 08/28/24 Source: Developed by Drs. Edvin Catherine, Melissa De La Cruz, Bimal Harris and colleagues, with an educational kizzy from [employer]. Review of Systems Const Denies chills, Denies fatigue, Denies fever(s), Denies headache(s) and Denies weakness ENT Denies dizziness and Denies headache(s) Card Denies dyspnea Resp Denies cough, Denies dyspnea, Denies wheezing and Denies other (shortness of breath) Musc Denies numbness and Denies tingling Neuro Denies dizziness, Denies headache(s), Denies numbness, Denies tingling and Denies weakness Psych Denies anxiety and Denies depression Endo Denies fatigue Aller/Immun Denies wheezing Physical exam (Primary Care) Vital Signs: Last Vital Signs Temp 97.6 F 02/28/25 09:28 Pulse 74 02/28/25 09:28 Resp 16 02/28/25 09:28 BP 128/54 L 02/28/25 09:28 Pulse Ox 96 02/28/25 09:28 Oxygen Delivery Method Room Air 02/28/25 09:28 BMI result Body Mass Index 39.0 Tobacco/Smoking Status: Tobacco use Status Tobacco use date assessed 02/28/25 02/28/25 09:32 Patient Tobacco Use Status Never used Tobacco 02/28/25 09:27 e-Cigarette/Vaping Use Never Used 02/28/25 09:27 Thrive Assessment: Date of Thrive Assessment Date Thrive assessed 08/27/24 02/28/25 09:27 Currently or been in a relationship where the following occur: No concerns reported Const General: well developed; No acute distress Nutritional Appearance: well nourished Orientation/consciousness: patient oriented x3 HENMT Head: Yes normocephalic and Yes atraumatic Eyes General: appearance normal, both eyes and all related structures Pupils: Equal, round and reactive pupils present EOM: EOMs intact bilaterally Resp Effort & Inspection: normal respiratory effort Neuro General: patient oriented x3 and gait normal Cranial nerves: Yes Equal, round and reactive pupils present Psych Affect: normal affect Coding Level of Care Code Est Pt Level 3 (54786) Diagnoses Exposure to hepatitis C Z20.5 Assessment & Plan Assessment & Plan (1) Exposure to hepatitis C: Code(s): Z20.5 - Contact with and (suspected) exposure to viral hepatitis Category: Medical Plan: Positive antibody to hep C. Viral load remains nondetectable Reassured patient Orders: Orders Comprehensive [place]. Panel Fast Today Z00.00 - Encounter for general adult medical examination without abnormal findings Microalbumin, Random (w Creat) Today I10 - Essential (primary) hypertension TSH reflex Free T4 Today Z00.00 - Encounter for general adult medical examination without abnormal findings UA CC w/rflx Micro + Cult Today Z00.00 - Encounter for general adult medical examination without abnormal findings Lipid Panel Today Z00.00 - Encounter for general adult medical examination without abnormal findings Complete Blood Count Auto Diff Today Z00.00 - Encounter for general adult medical examination without abnormal findings
[2025-02-28 09:28] VITALS: BP 128/54; PULSE 74; RESP 16; TEMP 36.4; O2SAT 96; BMI 39.0
--- OUTSIDE RECORDS SUMMARY | 2025-02-28 10:46 | XMS_ITS | Encounter Summary ---
Author Organization [employer] Address [address] [place] [address] Care Team Providers Care Cotton Expert Name Role Phone Clementina Pederson DO Primary Care Provider [phone] Reason for Visit * Reason Comments Med Refill Encounter Details Date Type Department Care Team (Late st Contact Info) Description 02/26/2025 Refill [facility] [address] [place] [address] Clementina Pederson DO [address] [place] [address] Mild persistent asthma without complication (Primary Dx) Social History Tobacco Use Types Packs/Day Years Used Date Smoking Tobacco: Never Passive Smoke Exposure: Never Smokeless Tobacco: Never Alcohol Use Standard [...] Industry Job Start Date Job End Date [employer] Not on file Not on file Not on file documented as of this encounter Plan of Treatment Not on file documented as of this encounter Visit Diagnoses Diagnosis Mild persistent asthma without complication- Primary documented in this encounter Care Teams Cotton Expert Relationship Specialty Start Date End Date Clementina Pederson DO [address] [place] [id number] PCP - General Family Medicine 09/15/23 documented as of this encounter
--- OUTSIDE RECORDS SUMMARY | 2025-02-28 10:46 | XMS_ITS | Clinical Summary ---
Author Organization [employer] Address [address] [place] [address] Care Team Providers Care Commissions Specialist Name Role Phone Clementina Pederson Primary Care Provider [phone] Allergies Active Allergy Reactions Criticality Noted Date Comments Cat Dander Other Low 04/15/2022 Other reaction(s): itchy eyes, runny nose Gramineae Pollens Other Low 04/15/2022 Other reaction(s): itchy eyes, runny nose Molds & Smuts Other Low 08/27/2022 Runny nose, itchy eyes Medications cetirizine (ZyrTEC) 10 MG tablet Take 10 mg by mouth in the morning. 08/05/19 22 Active Sodium Fluoride 5000 Enamel 1.1-5 % gel 04/06/20 22 Active copper (Paragard) IUD 11/26/19 23 Active albuterol 108 (90 Base) MCG/ACT inhalerIndicatio ns:Mild persistent asthma without complication Inhale 2 puffs every 4 (four) hours if needed for wheezing. 36 g 3 09/15/19 24 Active zafirlukast (Accolate) 20 MG tabletIndication s:Mild persistent asthma without complication,All ergic rhinitis, unspecified seasonality, unspecified trigger Take 1 tablet (20 mg) by mouth 2 times daily. 180 tablet 3 09/15/19 24 Active budesonide-formo terol (Breyna) 80-4.5 MCG/ACT inhalerIndicatio ns:Mild persistent asthma without complication Inhale 2 puffs in the morning and at bedtime. 10.2 g 1 02/28/20 25 026 Active budesonide-formo terol (Symbicort) 80-4.5 MCG/ACT inhalerIndicatio ns:Mild persistent asthma without complication Inhale 2 puffs in the morning and at bedtime. Rinse mouth with water after use to reduce aftertaste and incidence of candidiasis. Do not swallow. 10.2 g 11 09/15/19 24 025 Discontinued Active Problems Problem Noted Date Diagnosed Date Routine general medical examination at [facility] facility 05/24/2023 Assessment & Plan (05/24/2023 [...] cancer but also worked outside as a [employer] for years. Does not smoke/only occasional ETOH/no marijuana. Will do labwork at [facility] coming up in August. Gastroesophageal reflux disease 08/27/2022 Allergic rhinitis 04/15/2022 Assessment & Plan (05/24/2023 10:18 AM EST): Stable. Continues on Zyrtec as needed. 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 6, almost 7m. Doing well. Followed by Psychiatric Nurse Practitioner as well. No concerns today. Mild persistent asthma without complication 04/01 Assessment & Plan (05/24/2023 10:17 AM EST): Ongoing but stable. Asking for refills of Albuterol and Symbicort. Class 2 obesity 04/15/2022 Stress incontinence 04/15/2022 Resolved Problems Problem Noted Date Diagnosed Date Resolved Date Pyloric stenosis 09/15/2023 09/15/2023 Encounters Date Type Department Care Team Description 02/26/2025 Refill [facility] [address] [place] [address] Clementina Pederson, Mild persistent asthma without complication (Primary Dx) from Last 3 Months Immunizations Immunization Administration Dates Next Due DTaP [...] Industry Job Start Date Job End Date [employer] Not on file Not on file Not [...] Tobacco Screening 09/14/2024 09/15/2023 COVID-19 Vaccine ( - season) 2024 Influenza Vaccine (#1) 2024 [...] Procedure Name Priority Date/Time Associated Diagnosis Comments PAP/HPV Routine 01/18/2022 from Last 3 Months or Most Recently Relevant to Health Maintenance Results * Pap Smear (01/18/2022) Pap smear positive HPV Historical Provider MD HEALTH MAINTENANCE Final Result from Last 3 Months or Most Recently Relevant to Health Maintenance Insurance [employer] Care Teams Commissions Specialist Relationship Specialty Start Date End Date [facility] [id number] PCP - General Family Medicine 09/15/23
--- OUTSIDE RECORDS SUMMARY | 2025-02-28 10:46 | XMS_ITS | Encounter Summary ---
Author Organization [employer] Address [address] [place] [address] Care Team Providers Care Supervisor Hand Workers Name Role Phone Shannan Quiñones Primary Care Provider Clementina Osorio DO Primary Care Provider Encounter Details Date Type Department Care Team (Late st Contact Info) Description 05/21/2023 Orders Only [facility] [address] [place] [address] Nneka Ruiz CMA Social History Tobacco Use [...] on filedocumented in this encounter Care Teams Supervisor Hand Workers Relationship Specialty Start Date End Date Shannan Quiñones PA PCP - General Family Medicine 05/19/23 09/14/23 Clementina Pederson DO [address] [place] [id number] PCP - General Family Medicine 09/15/23 documented as of this encounter
== END 2025-02-28 10:03 | disposition home or self-care (01) ==
LOC: HO.HMCFM 09:21
PROVIDERS: PCP Family Medicine; Visit Provider Family Medicine
DX: Z20.5 Contact with and (suspected) exposure to viral hepatitis (principal)